=== PATIENT | female | born 1975 | race Hispanic/Latino ===

== ENCOUNTER 2017-09-29 15:16 | Emergency (ER) | payer OTHER ==
[~2017-09-29] VITALS: Ht 165.1 cm; Wt 100.0 kg
[~2017-09-29 15:16] MED LIST: AMOXICILLIN500 MG PO; TAM75CAP PO
[2017-09-29 15:52] LABS: INFLUENZA A NONE DETECTED (NONE DETECT); INFLUENZA B NONE DETECTED (NONE DETECT)
[2017-09-29] MEDS ORDERED: MUCINEX600 MG PO (16:11)
[2017-09-29] MEDS ORDERED: ZITHROMAX250 MG PO (16:11)
[2017-09-29 16:33] VITALS: BP 126/61
== END 2017-09-29 16:33 | disposition home or self-care (01) | DRG 203 ==
LOC: ED 15:16
PROVIDERS: Emergency Medicine
DX: J40 Bronchitis, not specified as acute or chronic (principal); R05 Cough; R09.81 Nasal congestion

== ENCOUNTER → 2018-12-12 | Outpatient (REF) | payer OTHER ==
[~2018-12-12] MED LIST changes: +MUCINEX600 MG PO; +ZITHROMAX250 MG PO
== END | disposition home or self-care (01) | DRG 641 ==
LOC: LAB 08:23
PROVIDERS: ATTEND Physician Assistant Medical
DX: R73.01 Impaired fasting glucose (principal); F45.8 Other somatoform disorders

== ENCOUNTER 2019-10-26 | Emergency (ER) | payer OTHER ==
[2019-10-26] MEDS ORDERED: TOPAMAX50 MG PO (18:18)
[2019-10-26] MEDS ORDERED: OMEPRAZOLE DR40 MG PO (18:21)
[2019-10-26] MEDS ORDERED: ZPAK PO (18:21)
[2019-10-26] MEDS ORDERED: MONTELUKAST SOD10 MG PO (18:21)
[2019-10-26] MEDS ORDERED: FERROUS FUM324 MG PO (18:22)
[2019-10-26] MEDS ORDERED: ZOFRAN4 MG/TAB PO (18:50)
[2019-10-26] MEDS ORDERED: TAM75CAP PO (18:50)
== END 2019-10-26 19:00 | disposition home or self-care (01) | DRG 153 ==
DX: J11.1 Influenza due to unidentified influenza virus with other respiratory manifestations (principal)

== ENCOUNTER 2022-04-08 07:54 | Observation (INO) | payer BC ==
[2022-04-08] VITALS (9 sets, daily range): BP systolic 96–130; BP diastolic 50–84
[~2022-04-08] VITALS: Ht 165.1 cm; Wt 125.0 kg
[~2022-04-08 07:54] MED LIST changes: +ALL DAY10 MG PO; +BIOTIN5000 MC2; +CARAFATE PO; +CLINDAMYCIN HC150 MG PO; +ERGOCALCIF50000 UNIT; +FERROUS FUM324 MG PO; +MELATONIN5 MG PO; +MONTELUKAST SOD10 MG PO; +OMEGA 31000 MG PO; +OMEPRAZOLE DR40 MG PO; +OMEPRAZOLE20 MG PO; +ONDANSETRON4 MG PO; +TOPAMAX50 MG PO; +TOPIRAMATE50 MG PO; +VITAMIN C500 M6 PO; +ZOFRAN4 MG/TAB PO; +ZPAK PO
[2022-04-08 11:20] LABS: IMMATURE GRANULOCYTES 1.7 % (0.0-5.0); MEAN CORPUSCULAR HGB 28.8 pG CALC (26.0-32.0); NEUT# 8.26 thou/uL (2.00-7.15); RED BLOOD COUNT 4.82 mill/uL (4.20-5.60)
[2022-04-08 11:24] LABS: HEMATOCRIT 43.4 % (37.0-47.0); HEMOGLOBIN 13.9 g/dl (12.0-16.0)
[2022-04-08] MEDS ORDERED: ALLERGY NA50 MCG/ACT NAB (15:09)
[2022-04-08 16:19] LABS: HEMATOCRIT 43.8 % (37.0-47.0)
[2022-04-08 22:13] LABS: HEMATOCRIT 42.8 % (37.0-47.0); HEMOGLOBIN 13.6 g/dl (12.0-16.0)
[2022-04-09 00:12] VITALS: BP 104/56
[2022-04-09 04:17] VITALS: BP 107/65
[2022-04-09 07:30] VITALS: BP 112/53
[2022-04-09] MEDS ORDERED: PERCOCET 5/325M1 TAB PO (13:04)
== END 2022-04-09 13:44 | disposition home or self-care (01) | DRG 419 ==
LOC: ORM 07:54 → MS2 12:00
PROVIDERS: ADMIT Surgery; ATTEND Surgery
PROC: 0FT44ZZ Resection of Gallbladder, Percutaneous Endoscopic Approach (ICD-10-PCS; principal; 2022-04-08)
DX: K80.10 Calculus of gallbladder with chronic cholecystitis without obstruction (principal); K82.8 Other specified diseases of gallbladder; K21.9 Gastro-esophageal reflux disease without esophagitis
CPT/HCPCS: J0131; J1100

== ENCOUNTER 2022-08-19 08:40 | Day surgery (SDC) | payer BC ==
[~2022-08-19] VITALS: Ht 165.1 cm; Wt 111.1 kg
[~2022-08-19 08:40] MED LIST changes: +ALLERGY NA50 MCG/ACT NAB; +PERCOCET 5/325M1 TAB PO; +PHENTERMINE37.5 MG PO
[2022-08-19] MEDS ORDERED: TRAMADOL HYDROC50 M1 PO (10:24)
[2022-08-19 10:53] VITALS: BP 93/59
== END 2022-08-19 11:27 | disposition home or self-care (01) | DRG 572 ==
LOC: ORM 08:40
PROVIDERS: ATTEND Surgery
PROC: 0JBL0ZZ Excision of Right Upper Leg Subcutaneous Tissue and Fascia, Open Approach (ICD-10-PCS; principal; 2022-08-19)
DX: D17.23 Benign lipomatous neoplasm of skin and subcutaneous tissue of right leg (principal)